=== PATIENT | male | born 1965 | race Caucasian/White ===

== ENCOUNTER 2018-07-27 00:14 | Outpatient (CLI) | payer BC, SELFPAY ==
[2018-07-29 04:42] LABS: Hemoglobin A1C 8.1 % (4.5-6.2)
== END 2018-07-27 00:34 ==
PROVIDERS: PCP Family Medicine; Visit Provider Family Medicine
DX: E11.9 Type 2 diabetes mellitus without complications (principal)
CPT/HCPCS: 36415; 83036

== ENCOUNTER 2018-11-01 07:00 | Outpatient (CLI) | payer BC, SELFPAY ==
[2018-11-01 08:06] LABS: Hemoglobin A1C 6.9 % (4.5-6.2)
[2018-11-01 08:18] LABS: ALT 58 U/L (12-78); AST 27 U/L (15-37); Albumin 3.9 g/dL (3.4-5.0); Alkaline Phosphatase 66 U/L (46-116); Anion Gap 7.4 mmol/L (3-11); BUN 22 mg/dL (7-18); Bilirubin, Total 0.7 mg/dL (0.2-1.0); CO2 28.6 mmol/L (21.0-32.0); CREATININE 0.95 mg/dL (0.70-1.30); Chloride 105 mmol/L (98-107); Glucose 115 mg/dL (70-100); Potassium 4.3 mmol/L (3.5-5.1); Sodium 141 mmol/L (136-145); Total Protein 6.7 g/dL (6.4-8.2)
== END 2018-11-01 07:20 ==
PROVIDERS: PCP Family Medicine; Visit Provider Family Medicine
DX: E11.9 Type 2 diabetes mellitus without complications (principal)
CPT/HCPCS: 36415; 80053; 83036

== ENCOUNTER 2019-01-18 09:01 | Outpatient (CLI) | payer OTHER, SELFPAY ==
[2019-01-18 10:19] LABS: Hemoglobin A1C 6.3 % (4.5-6.2)
[2019-01-18 10:40] LABS: Cholesterol 122 mg/dL (50-200); HDL Cholesterol 44 mg/dL (40-60); LDL CHOLESTEROL 61 mg/dL (<100); Triglyceride 82 mg/dL (30-150)
[2019-01-20 12:12] LABS: COMMENT (LAB VIEW ONLY) 172.26 mg/dL; Microalb ug/mg Crea 4.9 ug/mg Cr
== END 2019-01-18 09:21 ==
PROVIDERS: PCP Family Medicine; Visit Provider Family Medicine
DX: E11.9 Type 2 diabetes mellitus without complications (principal)
CPT/HCPCS: 36415; 80061; 83721; 82043; 82570; 83036

== ENCOUNTER 2020-01-10 01:18 | Outpatient (CLI) | payer OTHER, SELFPAY ==
[2020-01-10 09:39] LABS: Hemoglobin A1C 7.6 % (3.8-5.6)
[2020-01-10 10:09] LABS: Anion Gap 6.2 mmol/L (3-11); BUN 25 mg/dL (7-18); CO2 30.8 mmol/L (21.0-32.0); CREATININE 0.87 mg/dL (0.70-1.30); Calcium 8.9 mg/dL (8.5-10.1); Chloride 104 mmol/L (98-107); Glucose 244 mg/dL (74-106); Potassium 4.6 mmol/L (3.5-5.1); Sodium 141 mmol/L (136-145)
== END 2020-01-10 01:38 ==
PROVIDERS: PCP Family Medicine; Visit Provider Family Medicine
DX: E11.9 Type 2 diabetes mellitus without complications (principal)
CPT/HCPCS: 36415; 80048; 83036

== ENCOUNTER 2020-01-19 09:21 | Outpatient (REF) | payer OTHER, SELFPAY ==
[2020-01-20 12:55] LABS: Chlamydia Result Negative (Negative); GC Result Negative (Negative)
== END 2020-01-19 09:41 ==
LOC: LBN 09:21
PROVIDERS: PCP Family Medicine; Visit Provider Family Medicine
DX: Z11.3 Encounter for screening for infections with a predominantly sexual mode of transmission (principal)
CPT/HCPCS: 87491; 87591; 82043; 82570

== ENCOUNTER 2020-10-20 16:07 | Emergency (ER) | payer OTHER, SELFPAY ==
[2020-10-20] VITALS (10 sets, daily range): BP systolic 127–167; BP diastolic 75–90; PULSE 64–76; RESP 13–22; TEMP 36.7; O2SAT 98–100
--- NOTE | 2020-10-20 16:30 | DI.CT_ITS ---
EXAM: CT CHEST/ABD/PEL W CLINICAL HISTORY: R anterior trauma. RUQ/R Rib pain. TECHNIQUE: Imaging Protocol: Axial computed tomography images with coronal and sagittal reformatted images were created and reviewed CONTRAST MATERIAL: Intravenous: Omnipaque 350 Contrast volume:100 ml Oral: None COMPARISON: No exams were available for comparison FINDINGS: CHEST: LUNGS: No infiltrates nor lung contusion. No nodules. No pleural effusions. No pneumothorax. No s ignificant focal findings in trachea and mainstem bronchi.. MEDIASTINUM: There is no evidence of mediastinal hematoma. No incidental hilar nor mediastinal adeno kiara. No axillary adenopathy. Visualized thyroid unremarkable. CARDIAC: Heart size is normal. There is no pericardial effusion.Thoracic aorta unremarkable. OSSEOUS: No significant osseous findings.. ABDOMEN: There is no ascites. There is no evidence of mesenteric nor bowel wall hematoma. LIVER: No evidence of a patent laceration or perihepatic fluid. Liver is profoundly hypodense implyi ng steatosis. There is a cyst in the right hepatic lobe adjacent to the gallbladder fossa. This tara sures 9 x 12 millimeters. No other focal hepatic findings. GALLBLADDER/BILIARY: No obvious gallbladder pathology. CBD is not dilated. PANCREAS: No evidence of pancreatic mass nor dilatation of the pancreatic duct. SPLEEN: No splenic laceration or perisplenic fluid. Spleen size is normal. Splenic and portal veins are patent. ADRENALS: There are no significant adrenal masses. KIDNEYS: No evidence of renal laceration nor subcapsular hematoma. There is a cyst in the anterior c ortex of the right kidney measuring 2.8 x 2.7 centimetres. No solid renal masses. No calculi nor hy dronephrosis. ABDOMINAL AORTA: Abdominal aorta is intact. No aneurysm. No dissection. No periaortic stranding. No para-aortic adenopathy. ABDOMINAL WALL/GI: No evidence of significant anterior abdominal wall hernia. No prominent subcutane ous bruising nor fluid collection. No bowel obstruction or free air. PELVIS: LYMPH NODES: There is no intrapelvic nor inguinal adenopathy. GI: No evidence of appendicitis.No evidence of sigmoid diverticulitis. URINARY BLADDER: No evidence of significant trauma. No calculi. No masses. REPRODUCTIVE: Prostate unremarkable size. OSSEOUS: Mild deformity inferior pubic ramus on the right side probably healed fracture site. The no acute fractures identified. IMPRESSION: 1. No evidence of significant intrathoracic or intra-abdominal trauma. 2. No significant focal pulmonary findings nor pleural effusions. 3. Hepatic steatosis noted as well as what appears to be a probable cyst or hemangioma in the liver m easuring 9 x 12 millimeters. 4. Benign 2.8 centimeter cyst in the right kidney. No other significant renal findings. RADIATION DOSE DELIVERED: 1,267.7mGy.cm Total DLP DATA REPOSITORY: All CT scans at this facility are submitted to the National Radiology Data Registry (NRDR) Dose Index Registry (DIR) with the [employer] (A[employer]). RADIATION OPTIMIZATION: All CT scans at this facility use at least one of these dose optimization te chniques: automated exposure control; mA and/or kV adjustment per patient size (includes targeted exa ms where dose is matched to clinical indication); or iterative reconstruction.
--- NOTE | 2020-10-20 16:36 | W.ED.GENAD ---
Discharge Plan Disposition Patient Disposition: HOME Condition: Improving Discharge Details Clinical Impression: Contusion of right chest wall Primary Care Provider: Otilia Frausto ED Provider: Xander Flores Home Meds and New Rx's Prescriptions: Continued azelastine 0.05 % drops 1 drp OP BID PRN (Reason: allergic conjunctivitis) Qty: 6 RF: 2 finasteride 5 mg tablet 5 mg PO DAILY Qty: 90 RF: 4 glipizide 2.5 mg tablet extended release 24hr 2.5 mg PO DAILY Qty: 90 RF: 4 metformin 500 mg tablet 500 mg PO DAILY Qty: 90 RF: 4 metformin 1,000 mg tablet 1,000 mg PO BID Qty: 180 RF: 4 pravastatin 40 mg tablet 40 mg PO DAILY Qty: 90 RF: 4 (DME) blood-glucose meter 1 EACH misc 1 ea Miscellaneous DAILY Qty: 1 RF: 0 (DME) lancets 1 EACH misc 1 ea Miscellaneous DAILY Qty: 100 RF: 12 (DME) blood sugar diagnostic [Blood Glucose Test] strip 1 ea Miscellaneous DAILY Qty: 100 RF: 1 tamsulosin 0.4 mg capsule 0.4 mg PO BID RF: 0 Discharge Instructions Instructions: Contusion in Adults (ED) Additional Instructions: Apply ice 20 minutes at a time to reduce discomfort. You will likely develop bruising and may help your pain peak tomorrow morning. Please use Tylenol 650 to 1000mg every 6 hours as needed for pain. You may also use ibuprofen 600 mg every 8 hours as needed for pain -next dose in 6 hours. Return if you develop difficulty breathing, escalating pain, or any other acute concerns. Medical Decision Making 55-year-old male presents from home. States he was working at his wood pile when he slipped and fell forward, striking a piece of wood on the bottom and with his right chest and upper abdomen. He did not lose consciousness. He states it knocked the wind out of me. Patient progressively more and more painful, now hurting to take a deep breath. Vital signs reveal slight hypertension, otherwise unremarkable. Patient is tender overlying the right lower anterior rib cage and in the right upper quadrant of his abdomen. Differential diagnosis includes contusion, rib fracture, underlying liver or other visceral injury. Patient offered analgesia which he declined. IV access established, labs obtained patient referred for CT imaging. Labs are reassuring. Lipase negative, CBC unremarkable. CT reveals no acute findings of the chest, abdomen, pelvis. Patient reassured, consistent with contusion. He will use NSAIDs, cold therapy at home. He understands indications to seek reevaluation. HPI General Mode of arrival: ambulatory. Date/Time Provider Initiated Documentation: 10/20/20 16:08. Limitations to Documentation: no limitations. Information obtained by: patient. History of Present Illness 55 year old M presents to the emergency department with the chief complaint of R anterior rib, abd pain after fall, described as moderate, Quality is described as dull, and is localized to the chest and right. Patient reports no radiation. Patient started experiencing this hour(s) and it has been constant. No relieving factors improve symptom(s), No exacerbating factors reported . Patient notes denies shortness of breath and syncope. Patient did receive the following treatments prior to arrival, none Related Data Home Medications Medication Instructions Recorded Confirmed blood-glucose meter #1 ea 09/05/17 01/19/20 lancets #100 ea 12/05/17 01/19/20 azelastine 0.05 % eye drops 1 drp OP BID PRN #6 ml 11/11/18 10/20/20 blood sugar diagnostic #100 strip 11/12/18 01/19/20 finasteride 5 mg tablet 5 mg PO DAILY #90 tab-cap 01/19/20 10/20/20 glipizide 2.5 mg tablet, extended 2.5 mg PO DAILY #90 tab-cap 01/19/20 10/20/20 release 24 hr metformin 1,000 mg tablet 1,000 mg PO BID #180 tab-cap 01/19/20 10/20/20 metformin 500 mg tablet 500 mg PO DAILY #90 tab-cap 01/19/20 10/20/20 pravastatin 40 mg tablet 40 mg PO DAILY #90 tab-cap 01/19/20 10/20/20 tamsulosin 0.4 mg PO BID 10/20/20 10/20/20 Previous Rx's Medication Instructions Recorded blood-glucose meter #1 ea 09/05/17 lancets #100 ea 12/05/17 azelastine 0.05 % eye drops 1 drp OP BID PRN #6 ml 11/11/18 blood sugar diagnostic #100 strip 11/12/18 finasteride 5 mg tablet 5 mg PO DAILY #90 tab-cap 01/19/20 glipizide 2.5 mg tablet, extended 2.5 mg PO DAILY #90 tab-cap 01/19/20 release 24 hr metformin 1,000 mg tablet 1,000 mg PO BID #180 tab-cap 01/19/20 metformin 500 mg tablet 500 mg PO DAILY #90 tab-cap 01/19/20 pravastatin 40 mg tablet 40 mg PO DAILY #90 tab-cap 01/19/20 Allergies Allergy/AdvReac Type Severity Reaction Status Date / Time No Known Allergies Allergy Unverified 10/20/20 16:22 General Stated Complaint: Chest/Rib MKA: 4 Review of Systems Narrative: No loss of consciousness. Hurts to take deep breath. No other injury. 6 systems reviewed and otherwise negative [facility] Family History Mother Neoplasm LUNG Father Diabetes Neoplasm PROSTATE Sister No problems noted. Sister No problems noted. Brother No problems noted. Grandfather No problems noted. Grandfather No problems noted. Grandmother No problems noted. Grandmother Stroke Maternal Uncle Neoplasm PROSTATE Social History Smoking/Tobacco Use Status: Never Smoking risk assessment performed?: Yes Alcohol Intake: never Drug use: Never Substance use type: does not use Do you feel safe at home: Yes Do you feel safe in your relationship?: Yes Exam Narrative Exam Narrative: GEN: awake, alert, oriented 3. Pleasant, well groomed, interactive. HEAD: Normocephalic, atraumatic ENT: External ear exam unremarkable EYES: PERRL, EOMI NECK: Full ROM, no FARIDA, no menigismus CHEST/RESP: Tender right anterior lower rib cage, no crepitus, clear to auscultation bilateral, no wheeze/rhonchi/rales CARDIOVASCULAR: RRR, no murmur, rub cam. 2+ Rad pulse bilateral ABDOMEN: Soft, tender in the right upper quadrant to palpation, no mass. +Bowel sounds EXT: Full ROM, no edema, no rash Neuro: Grossly normal neurologic exam, conversant, interactive. Psych: Speech fluent, thoughts congruent, affect normal Course Vital Signs Vital signs: Vital Signs Temperature 36.7 C 10/20/20 16:23 Pulse 75 10/20/20 16:23 Respiratory Rate 18 10/20/20 16:23 Blood Pressure 167/90 H 10/20/20 16:23 Pulse Oximetry 99 10/20/20 16:23 Temperature 36.7 C 10/20/20 16:23 Temperature Source Skin 10/20/20 16:23 Pulse 75 10/20/20 16:23 Respiratory Rate 18 10/20/20 16:23 Respiratory Effort Non-Labored 10/20/20 16:25 Respiratory Depth Normal 10/20/20 16:25 Respiratory Pattern Normal 10/20/20 16:25 Blood Pressure 167/90 H 10/20/20 16:23 Blood Pressure Position Sitting 10/20/20 16:23 Pulse Oximetry 99 10/20/20 16:23 Oxygen Delivery Method Room Air 10/20/20 16:23 Oxygen Flow Rate 0 10/20/20 16:23 Pain Level 5 10/20/20 16:25
[2020-10-20 16:54] LABS: Abs Immature Grans 0.03 10^3/uL (0.0-0.06); Absolute Basophil Count 0.04 10^3/uL (0.0-0.2); Absolute Eosinophil Count 0.12 10^3/uL (0.0-0.7); Absolute Lymphocyte Count 2.89 10^3/uL (1.2-3.4); Absolute Monocyte Count 0.64 10^3/uL (0.1-0.8); Absolute Neutrophil Count 5.76 10^3/uL (1.2-6.7); Basophils % 0.4; Eosinophils % 1.3; HCT 46.8 % (40.0-50.0); HGB 16.5 g/dL (13.5-17.5); Immature Grans % 0.3; Lymphocytes % 30.5; MCH 30.4 pg (27.0-33.0); MCHC 35.3 % (32.0-36.0); MCV 86.3 fL (80-95); MPV 10.2 fL (8.0-11.0); Monocytes % 6.8; Neutrophils % 60.7; Nucleated RBC 0 %; Platelet Count 195 10^3/uL (130-400); RBC 5.42 10^6/uL (4.36-5.78); RDW-SD 37.8 fL; WBC 9.48 10^3/uL (4.4-10.8)
[2020-10-20] MEDS: Normal Saline 1,000 ML 150 ML IV (17:01)
[2020-10-20 17:08] LABS: ALT 61 U/L (16-63); AST 24 U/L (15-37); Alkaline Phosphatase 82 U/L (46-116); Anion Gap 8.2 mmol/L (3-11); BUN 17 mg/dL (7-18); Bilirubin, Total 0.5 mg/dL (0.2-1.0); CO2 26.8 mmol/L (21.0-32.0); CREATININE 1.08 mg/dL (0.70-1.30); Calcium 9.2 mg/dL (8.5-10.1); Chloride 103 mmol/L (98-107); Glucose 216 mg/dL (74-106); Lipase 158 U/L (73-393); Sodium 138 mmol/L (136-145); Total Protein 7.5 g/dL (6.4-8.2)
[2020-10-20] MEDS: Normal Saline - Diluent 50 ML VIAL IV (17:52)
[2020-10-20] MEDS: Omnipaque 350 MG/ML 100 ML BTL IJ (17:53)
[2020-10-20] MEDS: Normal Saline Flush 10 ML SYR IVP (17:53)
--- NOTE | 2020-10-20 18:17 | DI.VRAD_ITS ---
PROCEDURE INFORMATION: Exam: CT Chest With Contrast; Diagnostic Exam date and time: 10/20/2020 5:47 PM Age: 55 years old Clinical indication: Right-sided chest pain; RUQ abdominal pain TECHNIQUE: Imaging protocol: Diagnostic computed tomography of the chest with intravenous contrast. Radiation optimization: All CT scans at this facility use at least one of these dose optimization techniques: automated exposure control; mA and/or kV adjustment per patient size (includes targeted exams where dose is matched to clinical indication); or iterative reconstruction. Contrast material: OMNIPAQUE 350; Contrast volume: 100 ml; Contrast route: INTRAVENOUS (IV); COMPARISON: No relevant prior studies available. FINDINGS: Lungs: Unremarkable. No consolidation. No masses. Pleural space: Unremarkable. No pneumothorax. No pleural effusion. Heart: Unremarkable. No cardiomegaly. No pericardial effusion. Aorta: Unremarkable. No aortic aneurysm. Lymph nodes: Unremarkable. No enlarged lymph nodes. Bones/joints: Unremarkable. No acute fracture. Soft tissues: Unremarkable. IMPRESSION: No acute intrathoracic findings. PROCEDURE INFORMATION: Exam: CT Abdomen And Pelvis With Contrast Exam date and time: 10/20/2020 5:47 PM Age: 55 years old Clinical indication: RUQ abdominal pain; Right-sided chest pain TECHNIQUE: Imaging protocol: Computed tomography of the abdomen and pelvis with intravenous contrast. Radiation optimization: All CT scans at this facility use at least one of these dose optimization techniques: automated exposure control; mA and/or kV adjustment per patient size (includes targeted exams where dose is matched to clinical indication); or iterative reconstruction. Contrast material: OMNIPAQUE 350; Contrast volume: 100 ml; Contrast route: INTRAVENOUS (IV); COMPARISON: No relevant prior studies available. FINDINGS: Liver: Liver fatty infiltration. 8 x 13 mm cyst within the liver adjacent to the gallbladder fossa. Gallbladder and bile ducts: Normal. No calcified stones. No ductal dilation. Pancreas: Normal. No ductal dilation. Spleen: Normal. No splenomegaly. Adrenal glands: Normal. No mass. Kidneys and ureters: No hydronephrosis or perinephric fluid. Cyst within the anterior right renal cortex measuring 2.7 cm transversely. Stomach and bowel: The entire colon is under-distended and wall thickness cannot be accurately assessed - a colitis cannot be excluded. Appendix: Normal appendix. Intraperitoneal space: Unremarkable. No free air. No significant fluid collection. Vasculature: Unremarkable. No abdominal aortic aneurysm. Lymph nodes: Unremarkable. No enlarged lymph nodes. Urinary bladder: Unremarkable as visualized. Reproductive: Unremarkable as visualized. Bones/joints: Mild spinal degenerative changes. Soft tissues: Small fat-containing umbilical hernia. IMPRESSION: 1. The entire colon is under-distended and wall thickness cannot be accurately assessed - a colitis cannot be excluded. 2. Liver fatty infiltration. 3. Otherwise, no acute intra-abdominal or pelvic process. Dictated and Authenticated by: Nadeem Alexander MD. Ordering:SIENNA Terrell MD
[2020-10-20] MEDS: Ketorolac 15 MG/ML VIAL IVP (18:43)
[2020-10-20] MEDS: Acetaminophen 325 MG TAB 650 MG PO ×2 (18:59)
== END 2020-10-20 18:57 | disposition home or self-care (01) ==
PROVIDERS: Emergency Provider Emergency Medicine; PCP Family Medicine
DX: S20.211A Contusion of right front wall of thorax, initial encounter (principal); W01.198A Fall on same level from slipping, tripping and stumbling with subsequent striking against other object, initial encounter; Z79.84 Long term (current) use of oral hypoglycemic drugs
CPT/HCPCS: 74177; 80053; 83690; 96361; 96374; 99285; 71260; 85025; 99284; J1885; J3490

== ENCOUNTER 2021-01-13 04:01 | Outpatient (CLI) | payer OTHER, SELFPAY ==
[2021-01-13 08:06] LABS: Hemoglobin A1C 8.4 % (<5.7)
[2021-01-13 08:58] LABS: Microalb ug/mg Crea 3.8 ug/mg Cr
== END 2021-01-13 04:02 | disposition home or self-care (01) ==
LOC: LBO 04:01
PROVIDERS: PCP Family Medicine; Visit Provider Family Medicine
DX: E11.9 Type 2 diabetes mellitus without complications (principal)
CPT/HCPCS: 36415; 82043; 82570; 83036

== ENCOUNTER 2021-01-28 07:55 | Outpatient (REF) | payer OTHER, SELFPAY ==
[2021-01-28 23:06] LABS: Campylobacter PCR Negative (Negative); Salmonella PCR Negative (Negative); Shiga Toxin PCR Negative (Negative); Shigella/Enteroinvasive Ecoli Negative (Negative)
== END 2021-01-28 07:56 | disposition home or self-care (01) ==
LOC: LBN 07:55
PROVIDERS: PCP Family Medicine; Visit Provider Family Medicine
DX: R19.7 Diarrhea, unspecified (principal)
CPT/HCPCS: 87493; 87505

== ENCOUNTER 2022-01-27 01:35 | Outpatient (CLI) | payer OTHER, SELFPAY ==
[2022-01-27 11:24] LABS: COMMENT (LAB VIEW ONLY) 118.14 mg/dL; Microalb ug/mg Crea 7.4 ug/mg Cr
[2022-01-27 11:36] LABS: ALT 41 U/L (16-63); Anion Gap 6.4 mmol/L (3-11); BUN 18 mg/dL (7-18); CO2 29.6 mmol/L (21.0-32.0); CREATININE 0.9 mg/dL (0.70-1.30); Calcium 8.7 mg/dL (8.5-10.1); Calculated LDL 102 mg/dL (<100); Chloride 106 mmol/L (98-107); Cholesterol 168 mg/dL (<200); Glucose 128 mg/dL (74-106); HDL Cholesterol 48 mg/dL (40-60); Potassium 4.1 mmol/L (3.5-5.1); Sodium 142 mmol/L (136-145); Triglyceride 92 mg/dL (<150)
[2022-01-27 18:58] LABS: PSA, Screening 0.1 ng/mL (0.0-3.5)
== END 2022-01-27 01:36 | disposition home or self-care (01) ==
LOC: LBO 01:35
PROVIDERS: PCP Family Medicine; Visit Provider Family Medicine
DX: E11.9 Type 2 diabetes mellitus without complications (principal); E78.5 Hyperlipidemia, unspecified; Z12.5 Encounter for screening for malignant neoplasm of prostate
CPT/HCPCS: 36415; 80048; 80061; 84153; 82043; 82570; 84460

== ENCOUNTER 2022-11-07 08:13 | Day surgery (SDC) | payer OTHER, SELFPAY ==
--- NOTE | 2022-11-06 20:35 | DSE_ITS ---
Date of service: 11/07/22 DS: Diagnosis Discharge Diagnosis (1) Skin mass: Status: Acute Discharge Plan Disposition Patient Disposition: Home Discharge Details Attending Provider: Steve Michele Primary Care Provider: Jacobo Callejas Home Meds and New Rx's Prescriptions: No Action aspirin 81 mg tablet,delayed release (DR/EC) 81 mg PO DAILY azelastine 0.05 % drops 1 drp OP BID PRN (Reason: allergic conjunctivitis) Qty: 6 2RF (DME) Blood Glucose Test Strip 1 ea Miscellaneous DAILY Qty: 100 1RF Rx Instructions: FOR VERIO METER. PT DOES NOT USE INSULIN - test 3times/week (DME) blood-glucose meter 1 EACH misc 1 ea Miscellaneous DAILY Qty: 1 0RF Rx Instructions: VERIO GLUCOMETER/ USE DIRECTED (DME) lancets 28 gauge misc 1 ea Miscellaneous DAILY Qty: 100 12RF Rx Instructions: FOR Verio METER. NO INSULIN. DIAGNOSIS CODE E11.9/testing twice a day Farxiga 10 mg tablet 10 mg PO DAILY Qty: 90 2RF finasteride 5 mg tablet 5 mg PO DAILY Qty: 90 2RF glipizide 2.5 mg tablet extended release 24hr 2.5 mg PO DAILY Qty: 90 2RF pravastatin 40 mg tablet 40 mg PO DAILY Qty: 90 2RF tamsulosin 0.4 mg capsule 0.8 mg PO DAILY Qty: 180 2RF metformin 1,000 mg tablet 1,500 mg PO QPM Qty: 135 3RF PFSH All Active Problems (Updated 06/15/22 @ 15:55 by Jacobo Callejas NP) Skin mass (Acute) Plantar fasciitis of left foot (Acute) Hyperlipidemia (Acute) Benign prostatic hyperplasia with lower urinary tract symptoms (Acute 09/05/17) Depressive disorder (Acute) Diabetes mellitus (Acute) no retinopathy [facility] Medical History (Updated 06/15/22 @ 15:55 by Jacobo Callejas NP) History of hip fracture Microscopic hematuria negative work up / - fup yearly BPH - Family History Mother Neoplasm LUNG Father Diabetes Neoplasm PROSTATE Grandmother Stroke Maternal Uncle Neoplasm PROSTATE Social History (Updated 02/03/22 @ 10:44 by Yesenia Moore) Smoking/Tobacco Use Status: Never Second Hand Exposure: Yes Smoking risk assessment performed?: Yes Alcohol Intake: never Drug use: Never Substance use type: does not use Caregiver/Support person: No Household members: none Housing: house Pets and animals: No Sexually active: No Do you think of yourself as: straight/heterosexual Current gender identity: male How often do you talk on the phone with friends or family?: once per week How often do you get together with friends or relatives?: once per week How often do you attend gnosticist or worship services?: decline to answer Do you belong to any clubs or organized social groups?: yes Panel score (0-1 are the most socially isolated patients): 1 Rossana/Anabaptist: No preference Special rossana needs: No Seatbelt use: sometimes Helmet use: Yes Helmet use: sometimes Drive intox or ride w/intox straddle bug driver: No Do you feel safe at home: Yes Do you feel safe in your relationship?: Yes
--- NOTE | 2022-11-06 20:36 | PDOC.DSDIS_ITS ---
Date of service: 11/07/22 Time of Service: 09:50 Discharge Plan Disposition Patient Disposition: Home Condition: Good Discharge Details Reason For Visit: Skin lesion on left calf Attending Provider: Steve Michele Primary Care Provider: Jacobo Callejas Home Meds and New Rx's Prescriptions: New tramadol 50 mg tablet 50 mg PO BID PRN (Reason: pain) Qty: 9 0RF Rx Instructions: Take 1 tablet by mouth up to every 8 hours if needed for severe pain. Be careful as this medication is addictive. Continued aspirin 81 mg tablet,delayed release (DR/EC) 81 mg PO DAILY azelastine 0.05 % drops 1 drp OP BID PRN (Reason: allergic conjunctivitis) Qty: 6 2RF (DME) Blood Glucose Test Strip 1 ea Miscellaneous DAILY Qty: 100 1RF Rx Instructions: FOR VERIO METER. PT DOES NOT USE INSULIN - test 3times/week (DME) blood-glucose meter 1 EACH misc 1 ea Miscellaneous DAILY Qty: 1 0RF Rx Instructions: VERIO GLUCOMETER/ USE DIRECTED (DME) lancets 28 gauge misc 1 ea Miscellaneous DAILY Qty: 100 12RF Rx Instructions: FOR Verio METER. NO INSULIN. DIAGNOSIS CODE E11.9/testing twice a day Farxiga 10 mg tablet 10 mg PO DAILY Qty: 90 2RF finasteride 5 mg tablet 5 mg PO DAILY Qty: 90 2RF glipizide 2.5 mg tablet extended release 24hr 2.5 mg PO DAILY Qty: 90 2RF pravastatin 40 mg tablet 40 mg PO DAILY Qty: 90 2RF tamsulosin 0.4 mg capsule 0.8 mg PO DAILY Qty: 180 2RF metformin 1,000 mg tablet 1,500 mg PO QPM Qty: 135 3RF Discharge Instructions Additional Instructions: 1. Resume all of your medications. 2. Okay to use tylenol and ibuprofen over the counter as needed. Use tramadol as needed for severe pain. 3. Heating pads and ice packs are fine to use for pain. 4. Leave bandage in place for 24 hours, then remove. 5. Shower with warm soapy water. Pat dry. Use a bandaid if needed to protect your clothing. 6. No soaking or tub baths until I see you in the office. 7. No heavy lifting until I see you in the office. 8. Call the office (or go directly to the emergency room after hours) if you notice any of the following: Develop chills (warm to touch), or if you have a thermometer and your temperature is above 101 Difficulty breathing or difficultly swallowing Persistent vomiting Any bleeding ? exceeding one tablespoon 9. Call your physician if the site where your intravenous was started becomes red, swollen, painful, and warm to touch. Referrals: Steve Michele MD [ [facility] STAFF PHYSICIAN] - (Okay to see me, or any partner, in 7 to 10 days for suture removal.) Activity:: Activity as Tolerated Remove Dressings/Wound Care:: 24 hours Shower/Bathe:: 24 hours Diet:: As Tolerated Discharge Orders Discharge Orders: Discharge Order (Routine); Ordered 11/06/22 Ordered By: Steve Michele DS: Diagnosis Discharge Diagnosis (1) Skin mass: Status: Acute Asessment and Plan: Uncomplicated excision and primary closure. Follow the postoperative instructions I will call you with results of the pathology report when they are available.
--- NOTE | 2022-11-06 20:39 | W.PM.OP ---
Date of service: 11/07/22 Time of Service: 09:53 Operative Note Operative Note DATE OF PROCEDURE: 11/07/22 PRE-OP DIAGNOSIS: Left calf skin lesion POST-OP DIAGNOSIS: same PROCEDURE: Excision and primary closure of left calf skin lesion SURGEON: Steve Michele [employer] MANAGER: Akua Ventura ANESTHESIA TYPE: Local By Surgeon Refer to Anesthesia Record ESTIMATED BLOOD LOSS: 5 PATHOLOGY: other (Left calf skin lesion) COMPLICATIONS: None Patient was transported to: same day Patient's condition: stable Indications: Sam is a 57-year-old male with a soft, fluctuant, nontender lesion on the posterior aspect of his left calf. He underwent an ultrasound that demonstrated a debris-filled cyst. Procedure Description: After assisting the patient to the right lateral decubitus position, using local anesthetic with epinephrine, I established a large field block. Next I made an semi-elliptical skin incision over the apex of the mass. Using a 15 blade scalpel, I dissected the skin away from the lesion. I performed circumferential dissection down through the subcutaneous fascia incorporating the whole mass. I did not see any evidence of a feeding blood vessel. Once the mass was completely excised with an attenuated portion of overlying skin, I it from the operative field, and passed it off as a specimen. The surgical site was examined. It was hemostatic. I released partial-thickness skin flaps on the medial and lateral aspects to assist with closure. Next, using a Vicryl stitch, I approximated the deep layers of the skin. The overlying skin was closed with interrupted sutures, and a bandage was applied. The final excision dimensions were approximately 5 cm long by 2.5 cm wide by 1.5 centimeters deep.
[2022-11-07 08:18] VITALS: BP 143/83; PULSE 73; RESP 16; TEMP 36; O2SAT 97
--- NOTE | 2022-11-07 09:37 | SOFT_PTH ---
PATIENT: Sam Mota LOC: [facility] U#:[id number] AGE/SX: 57/M ROOM: RE11/07/[address]: Steve Michele MD : 1965 BED: DIS: 11/07/2022 SPEC #: [id number] RECD: 11/07/22 13:06 STATUS: VIKAS RE #: [id number] PATY: 11/07/22 09:[address]: Steve Michele DEPT: Surgical Specimen RECD BY: Sara Billy ENTERED: 11/07/22 13:07 SP TYPE: SOFT OTHR DR: Jacobo Callejas, DREW Tissues: 1 - SOFT TISSUE MISC (INC. LIPOMA) Procedures: GROSS AND MICRO LEVEL 4 Comments: [id number]
[2022-11-07] MEDS: Lidocaine 1% Pres-Free W/EPI 1/200,000 10 ML VIAL (09:50)
[2022-11-07 09:53] VITALS: BP 136/76; PULSE 63; RESP 16; TEMP 36.5; O2SAT 96
== END 2022-11-07 10:23 | disposition home or self-care (01) ==
PROVIDERS: PCP Nurse Practitioner Family; Visit Provider Surgery
PROC: (CPT 14020; principal; 2022-11-07 11:15)
DX: L72.8 Other follicular cysts of the skin and subcutaneous tissue (principal); E11.9 Type 2 diabetes mellitus without complications; D23.72 Other benign neoplasm of skin of left lower limb, including hip
CPT/HCPCS: 14020; 88305; 88304

== ENCOUNTER 2023-01-11 11:45 | Outpatient (CLI) | payer OTHER, SELFPAY ==
[2023-01-11 11:06] LABS: Hemoglobin A1C 8.3 % (<5.7)
== END 2023-01-11 11:46 | disposition home or self-care (01) ==
LOC: LBO 11:46
PROVIDERS: PCP Nurse Practitioner Family; Visit Provider Nurse Practitioner Family
DX: E11.9 Type 2 diabetes mellitus without complications (principal)
CPT/HCPCS: 36415; 83036

== ENCOUNTER 2024-01-17 14:18 | Outpatient (CLI) | payer OTHER, SELFPAY ==
[2024-01-17 14:15] LABS: Hemoglobin A1C 8.1 % (<5.7)
[2024-01-17 14:17] LABS: ALT 37 U/L (16-63); AST 21 U/L (15-37); Albumin 3.8 g/dL (3.4-5.0); Alkaline Phosphatase 84 U/L (46-116); Anion Gap 11.6 mmol/L (3-11); BUN 18 mg/dL (7-18); Bilirubin, Total 0.6 mg/dL (0.2-1.0); CO2 25.4 mmol/L (21.0-32.0); Calcium 9.3 mg/dL (8.5-10.1); Chloride 106 mmol/L (98-107); Estimated GFR 86.16 (mL/min/1.73m2); Glucose 175 mg/dL (74-106); Potassium 4.1 mmol/L (3.5-5.1); Sodium 143 mmol/L (136-145)
== END 2024-01-17 14:19 | disposition home or self-care (01) ==
LOC: LBO 14:19
PROVIDERS: PCP Nurse Practitioner Family; Visit Provider Nurse Practitioner Family
DX: E11.9 Type 2 diabetes mellitus without complications (principal)
CPT/HCPCS: 36415; 80053; 83036

== ENCOUNTER 2024-05-04 13:06 | Emergency (ER) | payer OTHER, SELFPAY ==
[2024-05-04] VITALS (7 sets, daily range): BP systolic 151–190; BP diastolic 78–103; PULSE 67–87; RESP 18–20; TEMP 36.5; O2SAT 93–98
--- NOTE | 2024-05-04 13:30 | DI.RAD_ITS ---
Exam(s) XR KNEE RT 3V AP,LAT,CYNTHIA EXAM: XR KNEE RT 3V AP,LAT,CYNTHIA CLINICAL HISTORY: torqued leg, eval for fx, pain at prox fib. TECHNIQUE: 2D digital imaging was performed. Three views. COMPARISON: No exams were available for comparison FINDINGS: BONES: No acute fracture is present. No bony destructive lesion is seen. Enthesophyte at quadriceps i nsertion on the patella. JOINTS: The knee is normally aligned. A moderate-sized joint effusion is seen. SOFT TISSUE: Normal. IMPRESSION: Joint effusion. No fracture identified. DATA REPOSITORY: RADIATION DOSE DELIVERED:
[2024-05-04] MEDS: MORPHine 4 MG/ML SYR IVP (13:55)
[2024-05-04 14:05] LABS: Abs Immature Grans 0.03 10^3/uL (0.0-0.06); Absolute Basophil Count 0.04 10^3/uL (0.0-0.2); Absolute Eosinophil Count 0.11 10^3/uL (0.0-0.7); Absolute Lymphocyte Count 1.97 10^3/uL (1.2-3.4); Absolute Monocyte Count 0.48 10^3/uL (0.1-0.8); Absolute Neutrophil Count 4.93 10^3/uL (1.2-6.7); Basophils % 0.5 %; Eosinophils % 1.5 %; HCT 48.1 % (40.0-50.0); HGB 16.5 g/dL (13.5-17.5); Immature Grans % 0.4 %; Lymphocytes % 26.1 %; MCH 30.6 pg (27.0-33.0); MCHC 34.3 % (32.0-36.0); MCV 89 fL (80-95); MPV 10.3 fL (8.0-11.0); Monocytes % 6.3 %; Neutrophils % 65.2 %; Platelet Count 156 10^3/uL (130-400); RBC 5.39 10^6/uL (4.36-5.78); RDW 12.1 % (11.8-14.1); RDW-SD 39.4 fL; WBC 7.56 10^3/uL (4.4-10.8)
[2024-05-04] MEDS: HYDROmorphone 2 MG/ML SYR 1 MG IVP (14:12)
[2024-05-04 14:19] LABS: ALT 35 U/L (16-63); AST 28 U/L (15-37); Albumin 3.7 g/dL (3.4-5.0); Alkaline Phosphatase 72 U/L (46-116); Anion Gap 9.3 mmol/L (3-11); BUN 18 mg/dL (7-18); Bilirubin, Total 0.71 mg/dL (0.2-1.0); CO2 26.7 mmol/L (21.0-32.0); Chloride 107 mmol/L (98-107); Estimated GFR 85.63 (mL/min/1.73m2); Glucose 219 mg/dL (74-106); Potassium 4.1 mmol/L (3.5-5.1); Sodium 143 mmol/L (136-145); Total Protein 6.8 g/dL (6.4-8.2)
--- NOTE | 2024-05-04 15:21 | ED.GENADUL_ITS ---
Discharge Plan Disposition Patient Disposition: Home Condition: Good Discharge Details Clinical Impression: Right knee sprain Primary Care Provider: Jacobo Callejas ED Provider: Michael Steinberg Home Meds and New Rx's Prescriptions: No Action (DME) Blood Glucose Test Strip 1 ea Miscellaneous DAILY Qty: 100 1RF Rx Instructions: FOR VERIO METER. PT DOES NOT USE INSULIN - test 3times/week (DME) blood-glucose meter 1 EACH misc 1 ea Miscellaneous DAILY Qty: 1 0RF Rx Instructions: VERIO GLUCOMETER/ USE DIRECTED (DME) lancets 28 gauge misc 1 ea Miscellaneous DAILY Qty: 100 12RF Rx Instructions: FOR Verio METER. NO INSULIN. DIAGNOSIS CODE E11.9/testing twice a day metformin 1,000 mg tablet 1,500 mg PO QPM Qty: 135 3RF azelastine 0.05 % drops 1 drp OP BID PRN (Reason: allergic conjunctivitis) Qty: 6 2RF dapagliflozin propanediol [Farxiga] 10 mg tablet 10 mg PO DAILY Qty: 90 3RF finasteride 5 mg tablet 5 mg PO DAILY Qty: 90 3RF pravastatin 40 mg tablet 40 mg PO DAILY Qty: 90 3RF tamsulosin 0.4 mg capsule 0.8 mg PO DAILY Qty: 180 3RF glipizide 5 mg tablet extended release 24hr 5 mg PO DAILY Qty: 90 3RF Jardiance 25 mg tablet 25 mg PO DAILY Qty: 90 3RF Discharge Instructions Instructions: Knee Sprain ED Additional Instructions: At this time the x-ray showed no evidence of fracture however there is a high likelihood of concern that you have injury to multiple ligamentous injuries. Please keep your knee immobilizer on. You can take it off when you are resting and lying flat. But do not ambulate around without it on. Dr. Perry of orthopedics has reviewed the images, and he would like to follow-up with you this week. His office will reach out to you. Please take Tylenol and Motrin for pain. Ice the area frequently. Take the narcotic pain pills only as needed for breakthrough pain. If you notice any worsening of your symptoms, or any new symptoms such as vomiting, diarrhea, fever, chills, shortness of breath, chest pain, numbness, weakness, viselike sensation in your leg, changing color for your foot, or fainting , please return immediately to the emergency department for reevaluation. Please follow up with your primary care provider as soon as possible for reassessment and reevaluation. As always, it was a pleasure participating in your medical care today. Referrals: Jacobo Callejas NP [Primary Care Provider] - Brad Perry MD [ [facility] STAFF PHYSICIAN] - HPI General Date/Time Provider Initiated Documentation: 05/04/24 13:36 . HPI Narrative: This is a 59-year-old male with a past medical history of type 2 diabetes mellitus, high cholesterol, and BPH, who presents today for right knee pain. Patient states that just an hour ago he was on his tractor, his leg got caught, his left foot slipped out, and he torqued his knee. He states that he heard multiple pops and had severe pain. He has not been able to bear any weight since then. He denies any pain in the calf or ankle or the mid thigh or proximally. He has pain mainly in the knee, but mainly only present when moving. Pain is present when moving in most any direction. He also admits to mild tingling in his foot. No other complaints at this time. No other modifying factors. Related Data Home Medications Medication Instructions Recorded Confirmed blood-glucose meter #1 ea 09/05/17 05/04/24 lancets 28 gauge #100 ea 01/31/21 05/04/24 metformin 1,000 mg tablet 1,500 mg (1.5 x 1,000 mg) PO QPM 06/29/23 05/04/24 #135 tab-caps azelastine 0.05 % eye drops 1 drp ophthalmic (eye) BID PRN 07/13/23 05/04/24 allergic conjunctivitis #6 mL dapagliflozin propanediol 10 mg 10 mg PO DAILY #90 tabs 12/05/23 05/04/24 tablet (Farxiga) finasteride 5 mg tablet 5 mg PO DAILY #90 tab-caps 12/05/23 05/04/24 pravastatin 40 mg tablet 40 mg PO DAILY #90 tab-caps 12/05/23 05/04/24 tamsulosin 0.4 mg capsule 0.8 mg (2 x 0.4 mg) PO DAILY #180 12/05/23 05/04/24 caps blood sugar diagnostic (Blood #100 strips 02/06/24 05/04/24 Glucose Test strips) glipizide 5 mg tablet, extended 5 mg PO DAILY #90 tab-caps 02/06/24 05/04/24 release 24 hr empagliflozin 25 mg tablet 25 mg PO DAILY #90 tabs 02/08/24 05/04/24 (Jardiance) Previous Rx's Medication Instructions Recorded blood-glucose meter #1 ea 09/05/17 lancets 28 gauge #100 ea 01/31/21 metformin 1,000 mg tablet 1,500 mg (1.5 x 1,000 mg) PO QPM 06/29/23 #135 tab-caps azelastine 0.05 % eye drops 1 drp ophthalmic (eye) BID PRN 07/13/23 allergic conjunctivitis #6 mL dapagliflozin propanediol 10 mg 10 mg PO DAILY #90 tabs 12/05/23 tablet (Farxiga) finasteride 5 mg tablet 5 mg PO DAILY #90 tab-caps 12/05/23 pravastatin 40 mg tablet 40 mg PO DAILY #90 tab-caps 12/05/23 tamsulosin 0.4 mg capsule 0.8 mg (2 x 0.4 mg) PO DAILY #180 12/05/23 caps blood sugar diagnostic (Blood #100 strips 02/06/24 Glucose Test strips) glipizide 5 mg tablet, extended 5 mg PO DAILY #90 tab-caps 02/06/24 release 24 hr empagliflozin 25 mg tablet 25 mg PO DAILY #90 tabs 02/08/24 (Jardiance) Allergies Allergy/AdvReac Type Severity Reaction Status Date / Time No Known Allergies Allergy Verified 05/04/24 13:18 General Stated Complaint: Orthopedic MAK: 4 Review of Systems All systems reviewed & are unremarkable except as noted in HPI and below Exam Narrative Exam Narrative: 1.Const: Well-nourished, Well-developed, appearing stated age 2.Eyes: PERRL, no conjunctival injection, and symmetrical lids. 3.ENT: Atraumatic external nose and ears. Moist MM. Neck: Symmetric, trachea midline, No thyromegaly. 4.CVS: +S1/S2, No murmurs or gallops. Peripheral pulses 2+ and equal in all extremities. Brisk capillary refill in all extremities. 5.RESP: Unlabored respiratory effort. Clear to auscultation bilaterally. No wheezes rales or rhonchi 6.GI: Soft, Nontender/Nondistended, No hepatosplenomegaly. No guarding or rebound. 7.MSK: Patient's right knee demonstrates mild swelling, minimal pain over the patella and tibial plateau. Moderate pain over the fibular head. Patient has extreme pain with any movement whatsoever, including varus and valgus stressing, unable to perform anterior posterior drawer test secondary to notable pain and discomfort. No tenderness on the mid calf, Homans' sign is negative. He demonstrates intact dorsiflexion and plantarflexion. Normal palpable sensation throughout the foot, brisk capillary refill for all toes, dorsalis pedis and posterior tibial pulse +2 bilaterally. Ankle-brachial index is 1.16, ankle blood pressure 190/103 and brachial pressure is 163/89. 8.Skin: Warm, Dry. No rashes or lesions. 9.Neuro: campaign worker II-XII grossly intact. Sensation grossly intact, no focal neurologic deficits. 10.Psych: (AAO) x3. Appropriate mood and affect Course Vital Signs Vital signs: Vital Signs Temperature 36.5 C 05/04/24 13:15 Pulse 79 05/04/24 13:15 Respiratory Rate 20 05/04/24 13:15 Blood Pressure 166/99 H 05/04/24 13:15 Pulse Oximetry 97 05/04/24 13:15 Temperature 36.5 C 05/04/24 13:15 Pulse 87 05/04/24 15:01 Respiratory Rate 18 05/04/24 13:44 Respiratory Effort Normal, Non-Labored 05/04/24 13:19 Blood Pressure 151/84 H 05/04/24 15:01 Blood Pressure Mean 108 05/04/24 15:01 Pulse Oximetry 93 05/04/24 15:01 Oxygen Delivery Method Room Air 05/04/24 13:44 Oxygen Flow Rate 0 05/04/24 13:44 Comment Ankle 05/04/24 14:01 Lab/Test Results Lab/Test Results: Laboratory Tests Range/Units 05/04/24 13:55 WBC (4.4-10.8) 10^3/uL 7.56 RBC (4.36-5.78) 10^6/uL 5.39 Hgb (13.5-17.5) g/dL 16.5 Hct (40.0-50.0) % 48.1 MCV (80-95) fL 89 MCH (27.0-33.0) pg 30.6 MCHC (32.0-36.0) % 34.3 RDW (11.8-14.1) % 12.1 Plt Count (130-400) 10^3/uL 156 MPV (8.0-11.0) fL 10.3 Immature Gran % % 0.4 Neutrophils % % 65.2 Lymphocytes % % 26.1 Monocytes % % 6.3 Eosinophils % % 1.5 Basophils % % 0.5 Nucleated RBC % (0.0-0.3) % 0.0 Absolute Neutrophils (1.2-6.7) 10^3/uL 4.93 Absolute Lymphocytes (1.2-3.4) 10^3/uL 1.97 Absolute Monocytes (0.1-0.8) 10^3/uL 0.48 Absolute Eosinophils (0.0-0.7) 10^3/uL 0.11 Absolute Basophils (0.0-0.2) 10^3/uL 0.04 Sodium (136-145) mmol/L 143 Potassium (3.5-5.1) mmol/L 4.1 Chloride (98-107) mmol/L 107 Carbon Dioxide (21.0-32.0) mmol/L 26.7 Anion Gap (3-11) mmol/L 9.3 BUN (7-18) mg/dL 18 Creatinine (0.70-1.30) mg/dL 1.0 Est GFR (CKD-EPI 2020) (mL/min/1.73m2) 85.63 Glucose (74-106) mg/dL 219 H Calcium (8.5-10.1) mg/dL 9.0 Total Bilirubin (0.2-1.0) mg/dL 0.71 AST (15-37) U/L 28 ALT (16-63) U/L 35 Alkaline Phosphatase (46-116) U/L 72 Total Protein (6.4-8.2) g/dL 6.8 Albumin (3.4-5.0) g/dL 3.7 Medical Decision Making This is a 59-year-old male with a past medical history of type 2 diabetes mellitus, high cholesterol, and BPH, who presents today for right knee pain. Patient states that just an hour ago he was on his tractor, his leg got caught, his left foot slipped out, and he torqued his knee. He had extension of the knee. He states that he heard multiple pops and had severe pain. He has not been able to bear any weight since then. He denies any pain in the calf or ankle or the mid thigh or proximally. He has pain mainly in the knee, but mainly only present when moving. Pain is present when moving in most any direction. He also admits to mild tingling in his foot. No other complaints at this time. No other modifying factors. Patient's right knee demonstrates mild swelling, minimal pain over the patella and tibial plateau. Moderate pain over the fibular head. Patient has extreme pain with any movement whatsoever, including varus and valgus stressing, unable to perform anterior posterior drawer test secondary to notable pain and discomfort. No tenderness on the mid calf, Homans' sign is negative. He demonstrates intact dorsiflexion and plantarflexion. Normal palpable sensation throughout the foot, brisk capillary refill for all toes, dorsalis pedis and posterior tibial pulse +2 bilaterally. Ankle-brachial index is 1.16, ankle blood pressure 190/103 and brachial pressure is 163/89. Notable concern for multiple ligamentous injuries including ACL PCL medial and lateral collateral ligaments. Unfortunately I am not able to fully test secondary to the pain that the patient is having. Ankle-brachial index was performed out of concern for potential vascular injury with hyperextension that he described, however ankle- brachial index does not demonstrate any representation of significant vascular compromise, nor does vascular exam at bedside. We will get x-rays to rule out fracture, monitor closely and reassess. Will treat the patient's pain. 2:30 PM Pain was not controlled with 4 of morphine, we will give him 1 mg of Dilaudid. 3:[address] scan shows small knee joint effusion with no acute fractures, still concern is high for ligamentous injury. No evidence of vascular injury on current clinical exam. Sensation remains intact on the foot. Pulses remain intact on reassessment. Discussed the case with orthopedics Dr. Perry, we will place the patient in a knee immobilizer and have him follow-up closely with orthopedics this week. Will give few narcotic pain pills for home use. Recommend continued NSAIDs. Discussed red flags which to return. I have extensively reviewed the treatment plan and discharge instructions with the patient. I have addressed all patient concerns at this time. The patient was made aware of what symptoms to monitor for that would warrant a return to the emergency department. Discussed the plan with the patient, they demonstrate verbal understanding and agreement with our assessment and plan at this time. The documentation in this chart was dictated using Dapt dictation software. Please excuse any dictation errors. FINDINGS: Bones/joints: No acute fracture or dislocation. Joint spaces preserved. Small suprapatellar joint effusion. Soft tissues: Quadriceps enthesopathy. IMPRESSION: Small knee joint effusion with no acute fracture. Thank you for allowing us to participate in the care of your patient. Dictated and Authenticated by: Matthew Keane MD 05/04/2024 3:33 PM Eastern Time ([place] & [place]) Quality:SDOH Health Related Social Needs: No Data to Display PFSH All Active Problems (Updated 05/04/24 @ 15:43 by Michael Steinberg DO) Right knee sprain (Acute) Benign prostatic hyperplasia with lower urinary tract symptoms (Acute 09/05/17) Depressive disorder (Acute) Diabetes mellitus (Acute) no retinopathy -2016 [place] Hyperlipidemia (Acute) Medical History BPH (benign prostatic hyperplasia) BPH (benign prostatic hyperplasia) Diabetes mellitus Plantar fasciitis of left foot History of hip fracture Microscopic hematuria negative work up / - fup yearly BPH - Family History Mother Neoplasm LUNG Father Diabetes Neoplasm PROSTATE Grandmother Stroke Maternal Uncle Neoplasm PROSTATE Social History Smoking/Tobacco Use Status: Never Second Hand Exposure: Yes Smoking risk assessment performed?: Yes Alcohol Intake: never Drug use: Never Substance use type: does not use Adopted: No Caregiver/Support person: No Household members: none Housing: house Number of Children: 3 number of grandchildren: 6 Communication Needs: None Education Level: high school Do you need help understanding health information?: Rarely current occupation: laundry equipment operator Pets and animals: No Sexually active: Yes Do you think of yourself as: straight/heterosexual Current gender identity: male What is your relationship status?: How often do you talk on the phone with friends or family?: three or more times per week How often do you get together with friends or relatives?: once per week How often do you attend hinduism or quaker services?: decline to answer Do you belong to any clubs or organized social groups?: no Panel score (0-1 are the most socially isolated patients): 1 Rossana/Scientology: Non jehovah's witness Special rossana needs: No Seatbelt use: sometimes Helmet use: Yes Helmet use: sometimes Drive intox or ride w/intox company tanker truck driver: No Firearms in home: Yes Firearms unloaded and locked: Yes Do you feel safe at home: Yes Do you feel safe in your relationship?: Yes Victim of physical abuse: No Victim of emotional abuse: No Victim of sexual abuse: No Would you like helpful sources: No
--- NOTE | 2024-05-04 15:34 | DI.VRAD_ITS ---
PROCEDURE INFORMATION: Exam: XR Right Knee Exam date and time: 05/04/2024 2:26 PM Age: 59 years old Clinical indication: Other: Torqued leg, eval for FX, pain at prox fib TECHNIQUE: Imaging protocol: Radiologic exam of the right knee. Views: 3 views. COMPARISON: No relevant prior studies available. FINDINGS: Bones/joints: No acute fracture or dislocation. Joint spaces preserved. Small suprapatellar joint effusion. Soft tissues: Quadriceps enthesopathy. IMPRESSION: Small knee joint effusion with no acute fracture. Dictated and Authenticated by: Matthew Keane MD. Ordering:ZAK Rodriguez MD
== END 2024-05-04 16:17 | disposition home or self-care (01) ==
PROVIDERS: Emergency Provider Student in an Organized Health Care Education/Training Program; PCP Nurse Practitioner Family
DX: S83.91XA Sprain of unspecified site of right knee, initial encounter (principal); E11.9 Type 2 diabetes mellitus without complications; E78.5 Hyperlipidemia, unspecified; Z79.84 Long term (current) use of oral hypoglycemic drugs; M25.461 Effusion, right knee; V84.4XXA Person injured while boarding or alighting from special agricultural vehicle, initial encounter
CPT/HCPCS: 73562; 80053; 99284; 85025; 99283; J1170; J2270

== ENCOUNTER 2024-05-06 15:43 | Outpatient (REF) | payer OTHER, SELFPAY ==
[2024-05-06 14:07] LABS: COMMENT (LAB VIEW ONLY) 70.64 mg/dL; Microalb ug/mg Crea 2.1 ug/mg Cr
== END 2024-05-06 15:44 | disposition home or self-care (01) ==
LOC: LBN 15:43
PROVIDERS: PCP Nurse Practitioner Family; Visit Provider Nurse Practitioner Family
DX: E11.9 Type 2 diabetes mellitus without complications (principal)
CPT/HCPCS: 82043; 82570

== ENCOUNTER → 2024-05-07 00:41 | Outpatient (CLI) | payer OTHER, SELFPAY ==
--- NOTE | 2024-05-07 15:45 | DI.MRI_ITS ---
Exam(s) MR LOWER JOINT RT WO EXAM: MR LOWER JOINT RT WO CLINICAL HISTORY: R KNEE INJURY,sprain,[id number]. TECHNIQUE: Multiplanar multisequence MRI was performed. COMPARISON: CR,XR XR KNEE RT 3V AP,LAT,CYNTHIA from 05/04/2024 FINDINGS: BONES: There is no fracture or contusion pattern. JOINTS: A moderate-sized joint effusion is present. Articular cartilage: Patellofemoral joint: Articular cartilage is unremarkable. Medial femoral tibial joint: Articular cartilage is unremarkable. Lateral femoral tibial joint: Articular cartilage is unremarkable. LIGAMENTS: Anterior Cruciate: Unremarkable. Posterior Cruciate: Unremarkable. Medial Collateral:Unremarkable. Lateral Collateral ligament complex: Unremarkable. TENDONS: Extensor mechanism: Unremarkable. Medial retinaculum: Unremarkable. Lateral retinaculum: Unremarkable. Popliteus: Intact proximally. Wavy distally. MENISCI: The medial meniscus is unremarkable. The lateral meniscus is unremarkable. MUSCLES: Edema in the tibialis anterior and popliteus muscle. Popliteus tendon is wavy distally. Th ere is marked enlargement of the popliteus muscle consistent with severe muscle tear. SOFT TISSUES: Edema in the subcutaneous fat throughout. IMPRESSION: Severe muscle strain/tear of the popliteus muscle. Joint effusion. No ligament or meniscal tear. DATA REPOSITORY:
== END ==
PROVIDERS: PCP Nurse Practitioner Family; Visit Provider Student in an Organized Health Care Education/Training Program
DX: S83.91XA Sprain of unspecified site of right knee, initial encounter (principal)
CPT/HCPCS: 73721

== ENCOUNTER 2025-01-19 04:26 | Outpatient (CLI) | payer OTHER, SELFPAY ==
[2025-01-19 13:12] LABS: Hemoglobin A1C 6.5 % (<5.7)
[2025-01-19 13:47] LABS: ALT 34 U/L (16-63); AST 22 U/L (15-37); Albumin 3.7 g/dL (3.4-5.0); Alkaline Phosphatase 77 U/L (46-116); Anion Gap 9.2 mmol/L (3-11); BUN 20 mg/dL (7-18); Bilirubin, Total 0.7 mg/dL (0.2-1.0); CO2 26.8 mmol/L (21.0-32.0); CREATININE 0.9 mg/dL (0.70-1.30); Calculated LDL 49 mg/dL (<100); Chloride 109 mmol/L (98-107); Cholesterol 113 mg/dL (<200); Estimated GFR 97.17 (mL/min/1.73m2); Glucose 116 mg/dL (74-106); HDL Cholesterol 44 mg/dL (>or=40); Potassium 3.9 mmol/L (3.5-5.1); Sodium 145 mmol/L (136-145); Triglyceride 101 mg/dL (<150)
[2025-01-19 22:24] LABS: PSA, Screening 0.2 ng/mL (<=4.5)
== END 2025-01-19 04:27 | disposition home or self-care (01) ==
LOC: LBO 04:26
PROVIDERS: PCP Nurse Practitioner Family; Visit Provider Nurse Practitioner Family
DX: Z13.220 Encounter for screening for lipoid disorders (principal); Z12.5 Encounter for screening for malignant neoplasm of prostate; E11.9 Type 2 diabetes mellitus without complications; Z13.1 Encounter for screening for diabetes mellitus
CPT/HCPCS: 36415; 80053; 80061; 84153; 83036